=== PATIENT | male | born 1980 | race Caucasian/White ===

== ENCOUNTER 2018-06-13 11:49 | Emergency (ER) | payer OTHER ==
[2018-06-13 13:10] LABS: BASO % 0.3 % (0.0-2.0); EOS % 0.1 % (0.0-4.0); LYMPH # 1.9 K/uL (1.0-4.3); LYMPH % 21.6 % (20.0-40.0); MEAN CELL VOLUME 97.3 fL (80.0-94.0); MEAN CORPUSCULAR HEMOGLOBIN 33.2 pg (27.0-31.0); MEAN CORPUSCULAR HGB CONC 34.1 g/dL (33.0-37.0); MONO # 0.6 K/uL (0.0-0.8); MONO % 7.3 % (0.0-10.0); NEUT # 6.1 K/uL (1.8-7.0); NEUT % 70.7 % (50.0-75.0); RBC 4.82 Mil/uL (4.40-5.90); RED CELL DISTRIBUTION WIDTH 14.7 % (11.5-14.5); WHITE BLOOD COUNT 8.6 K/uL (4.8-10.8)
[2018-06-13 13:30] LABS: ACETAMINOPHEN < 10.0 ug/mL (10.0-30.0); SALICYLATE < 1.0 mg/dL 1
[2018-06-13 13:31] LABS: ALB/GLOB RATIO 1.4 (1.0-2.1); ALBUMIN 5.1 g/dL (3.5-5.0); ALT/SGPT 43 U/L (21-72); AST/SGOT 32 U/L (17-59); BLOOD UREA NITROGEN 10 mg/dL (9-20); CALCIUM 9.7 mg/dl (8.6-10.4); GFR NON-AFRICAN AMERICAN > 60
--- NOTE | 2018-06-13 13:42 | C.PDOC ---
History Of Present Illness 37 y/o male, with questionable PMhx of psychiatric illness, presents to ER with for bizarre behavior. As per , patient started behaving bizarrely last night. states that patient has history of similar symptoms 8 months ago when he was "stressed." Patient states that he is stressed about the "spirits." Denies having suicidal ideation, homicidal ideation, and active physical complaints. <Faisal Rojas - Last Filed: 06/13/18 16:45> History Per: Patient, Family (mother) History/Exam Limitations: no limitations Onset/Duration Of Symptoms: Days Current Symptoms Are (Timing): Still Present Severity: Moderate <Faisal Rojas - Last Filed: 06/13/18 16:45> <Lenin Mckeon - Last Filed: 06/14/18 06:08> <Apple Purcell - Last Filed: 06/14/18 15:13> Time Seen by Provider: 06/13/18 12:38 Chief Complaint (Nursing): Psychiatric Evaluation Past Medical History Reviewed: Historical Data, Nursing Documentation, Vital Signs Vital Signs: Last Vital Signs Temp 98.3 F 06/13/18 11:55 Pulse 98 H 06/13/18 11:55 Resp 18 06/13/18 11:55 BP 146/66 06/13/18 11:55 Pulse Ox 99 06/13/18 11:55 - Medical History PMH: No Chronic Diseases Surgical History: No Surg Hx Family History: States: No Known Family Hx - Social History Hx Alcohol Use: No Hx Substance Use: No - Immunization History Hx Tetanus Toxoid Vaccination: No Hx Influenza Vaccination: No Hx Pneumococcal Vaccination: No <Faisal Rojas - Last Filed: 06/13/18 16:45> Vital Signs: Last Vital Signs Temp 97.2 F L 06/13/18 23:00 Pulse 98 H 06/13/18 23:00 Resp 20 06/13/18 23:00 BP 107/76 06/13/18 23:00 Pulse Ox 99 06/13/18 23:00 <Lenin Mckeon - Last Filed: 06/14/18 06:08> Vital Signs: Last Vital Signs Temp 98.2 F 06/14/18 14:30 Pulse 72 06/14/18 14:30 Resp 20 06/14/18 14:30 BP 104/73 06/14/18 14:30 Pulse Ox 100 06/14/18 14:30 <Apple Purcell - Last Filed: 06/14/18 15:13> Review Of Systems Except As Marked, All Systems Reviewed And Found Negative. Constitutional: Negative for: Fever, Chills Psych: Negative for: Suicidal ideation <Faisal Rojas - Last Filed: 06/13/18 16:45> Physical Exam - Physical Exam Appears: Other (bizzare affect, actively praying) Skin: Normal Color, Warm, Dry Head: Atraumatic, Normacephalic Eye(s): bilateral: Normal Inspection Nose: Normal Oral Mucosa: Moist Neck: Supple Chest: Symmetrical Cardiovascular: Rhythm Regular Respiratory: Normal Breath Sounds, No Rales, No Rhonchi, No Wheezing Gastrointestinal/Abdominal: Soft, No Tenderness, No Guarding, No Rebound Neurological/Psych: Other (no focal deficits) <Faisal Rojas - Last Filed: 06/13/18 16:45> ED Course And Treatment - Laboratory Results Result Diagrams: 06/13/18 13:07 06/13/18 13:07 Lab Results: Total Bilirubin 2.1 mg/dL (0.2-1.3) H 06/13/18 13:07 AST 32 U/L (17-59) 06/13/18 13:07 ALT 43 U/L (21-72) 06/13/18 13:07 Alkaline Phosphatase 102 U/L (38-126) 06/13/18 13:07 Total Protein 8.8 g/dL (6.3-8.3) H 06/13/18 13:07 Albumin 5.1 g/dL (3.5-5.0) H 06/13/18 13:07 Globulin 3.7 gm/dL (2.2-3.9) 06/13/18 13:07 Albumin/Globulin Ratio 1.4 (1.0-2.1) 06/13/18 13:07 ECG: Interpreted By Me, Viewed By Me ECG Rhythm: Sinus Rhythm Interpretation Of ECG: NSR with no ST/ T wave changes Rate From EC O2 Sat by Pulse Oximetry: 99 (RA) Pulse Ox Interpretation: Normal - Other Rad CXR X-Ray: Viewed By Me, Read By Radiologist Interpretation: Accession No. : [id number]. Patient Name / ID : WILLIAM VIERA / [id number]. Exam Date : 06/13/2018 14:50:43 ( Approved ). Study Comment : Sex / Age : M / 37Y. Creator : fiona jones. Dictator : Ari Mancia MD. Patient Admitting Clerk : Information Assurance Engineer : Ari Mancia MD. Approver2 : Report Date : 06/13/2018 15:03:47. My Comment : . Date of service: 06/13/2018. HISTORY: pysch. COMPARISON: No prior. FINDINGS: LUNGS: No active pulmonary disease. PLEURA: No significant pleural effusion identified, no pneumothorax apparent. CARDIOVASCULAR: No aortic atherosclerotic calcification present. Normal cardiac size. No pulmonary vascular congestion. OSSEOUS STRUCTURES: No significant abnormalities. VISUALIZED UPPER ABDOMEN: Normal. OTHER FINDINGS: None. IMPRESSION: No active disease. <Faisal Rojas - Last Filed: 06/13/18 16:45> - Laboratory Results Result Diagrams: 06/13/18 13:07 06/13/18 13:07 Lab Results: Total Bilirubin 2.1 mg/dL (0.2-1.3) H 06/13/18 13:07 Direct Bilirubin 0.6 mg/dL (0.0-0.4) H 06/13/18 15:58 AST 32 U/L (17-59) 06/13/18 13:07 ALT 43 U/L (21-72) 06/13/18 13:07 Alkaline Phosphatase 102 U/L (38-126) 06/13/18 13:07 Total Protein 8.8 g/dL (6.3-8.3) H 06/13/18 13:07 Albumin 5.1 g/dL (3.5-5.0) H 06/13/18 13:07 Globulin 3.7 gm/dL (2.2-3.9) 06/13/18 13:07 Albumin/Globulin Ratio 1.4 (1.0-2.1) 06/13/18 13:07 Urine Color Yellow (YELLOW) 06/13/18 15:17 Urine Clarity Clear (Clear) 06/13/18 15:17 Urine pH 6.0 (5.0-8.0) 06/13/18 15:17 Ur Specific [place] 1.006 (1.003-1.030) 06/13/18 15:17 Urine Protein Negative mg/dL (NEGATIVE) 06/13/18 15:17 Urine Glucose (UA) Normal mg/dL (Normal) 06/13/18 15:17 Urine Ketones Negative mg/dL (NEGATIVE) 06/13/18 15:17 Urine Blood Negative (NEGATIVE) 06/13/18 15:17 Urine Nitrate Negative (NEGATIVE) 06/13/18 15:17 Urine Bilirubin Negative (NEGATIVE) 06/13/18 15:17 Urine Urobilinogen Normal mg/dL (0.2-1.0) 06/13/18 15:17 Ur Leukocyte Esterase Neg Mohsen/uL (Negative) 06/13/18 15:17 Urine WBC (Auto) < 1 /hpf (0-5) 06/13/18 15:17 Urine RBC (Auto) < 1 /hpf (0-3) 06/13/18 15:17 Urine Bacteria Rare (<OCC) 06/13/18 15:17 <Lenin Mckeon - Last Filed: 06/14/18 06:08> - Laboratory Results Result Diagrams: 06/13/18 13:07 06/13/18 13:07 Lab Results: Total Bilirubin 2.1 mg/dL (0.2-1.3) H 06/13/18 13:07 Direct Bilirubin 0.6 mg/dL (0.0-0.4) H 06/13/18 15:58 AST 32 U/L (17-59) 06/13/18 13:07 ALT 43 U/L (21-72) 06/13/18 13:07 Alkaline Phosphatase 102 U/L (38-126) 06/13/18 13:07 Total Protein 8.8 g/dL (6.3-8.3) H 06/13/18 13:07 Albumin 5.1 g/dL (3.5-5.0) H 06/13/18 13:07 Globulin 3.7 gm/dL (2.2-3.9) 06/13/18 13:07 Albumin/Globulin Ratio 1.4 (1.0-2.1) 06/13/18 13:07 Urine Color Yellow (YELLOW) 06/13/18 15:17 Urine Clarity Clear (Clear) 06/13/18 15:17 Urine pH 6.0 (5.0-8.0) 06/13/18 15:17 Ur Specific [place] 1.006 (1.003-1.030) 06/13/18 15:17 Urine Protein Negative mg/dL (NEGATIVE) 06/13/18 15:17 Urine Glucose (UA) Normal mg/dL (Normal) 06/13/18 15:17 Urine Ketones Negative mg/dL (NEGATIVE) 06/13/18 15:17 Urine Blood Negative (NEGATIVE) 06/13/18 15:17 Urine Nitrate Negative (NEGATIVE) 06/13/18 15:17 Urine Bilirubin Negative (NEGATIVE) 06/13/18 15:17 Urine Urobilinogen Normal mg/dL (0.2-1.0) 06/13/18 15:17 Ur Leukocyte Esterase Neg Mohsen/uL (Negative) 06/13/18 15:17 Urine WBC (Auto) < 1 /hpf (0-5) 06/13/18 15:17 Urine RBC (Auto) < 1 /hpf (0-3) 06/13/18 15:17 Urine Bacteria Rare (<OCC) 06/13/18 15:17 <Apple Purcell - Last Filed: 06/14/18 15:13> Medical Decision Making Medical Decision Making: pending medical clearance Plan: --Labs --UA --CXR pt medically cleared. non specific elevation in bili, mostly unconjugated. abd soft. no other elevation in lfts. <Faisal Rojas - Last Filed: 06/13/18 16:45> Medical Decision Makin:05 Patient has bed at [facility] [place] Dr. Jazzy Sauceda. <Apple Purcell - Last Filed: 06/14/18 15:13> Disposition <Faisal Rojas - Last Filed: 06/13/18 16:45> Counseled Patient/Family Regarding: Studies Performed, Diagnosis - Disposition Disposition Time: 07:00 <Lenin Mckeon - Last Filed: 06/14/18 06:08> - Disposition Disposition Time: 15:12 <Apple Purcell - Last Filed: 06/14/18 15:13> - Disposition Disposition: Trans to Other Acute Care Hosp Condition: [facility] Forms: [facility] (Lebanese) - Clinical Impression Clinical Impression: Schizophrenia - Scribe Statement The provider has reviewed the documentation as recorded by the Venus Gomez Provider Attestation: All medical record entries made by the Jose Alejandroibe were at my direction and personally dictated by me. I have reviewed the chart and agree that the record accurately reflects my personal performance of the history, physical exam, medical decision making, and the department course for this patient. I have also personally directed, reviewed, and agree with the discharge instructions and disposition. <Faisal Rojas - Last Filed: 06/13/18 16:45> Physician Patient Turnover Patient Signed Over To: Apple Purcell Handoff Comments: pending bed availability at [facility] [place] <Lenin Mckeon - Last Filed: 06/14/18 06:08>
--- NOTE | 2018-06-13 15:11 | RAD ---
Date of service: 06/13/2018 HISTORY: pysch COMPARISON: No prior. FINDINGS: LUNGS: No active pulmonary disease. PLEURA: No significant pleural effusion identified, no pneumothorax apparent. CARDIOVASCULAR: No aortic atherosclerotic calcification present. Normal cardiac size. No pulmonary vascular congestion. OSSEOUS STRUCTURES: No significant abnormalities. VISUALIZED UPPER ABDOMEN: Normal. OTHER FINDINGS: None. IMPRESSION: No active disease.
[2018-06-13 15:25] LABS: URINE BACTERIA RARE (<OCC); URINE BILIRUBIN NEGATIVE (NEGATIVE); URINE BLOOD NEGATIVE (NEGATIVE); URINE CLARITY Clear (Clear); URINE COLOR Yellow (YELLOW); URINE GLUCOSE (UA) NORMAL (Normal); URINE LEUKOCYTE ESTERASE NEG Leu/uL (Negative); URINE PROTEIN NEGATIVE (NEGATIVE); URINE UROBILINOGEN NORMAL mg/dL (0.2-1.0)
[2018-06-13 15:57] LABS: BARBITURATES, UR NEGATIVE (NEGATIVE); BENZODIAZEPINES, UR NEGATIVE (NEGATIVE); PHENCYCLIDINE, UR NEGATIVE (NEGATIVE)
[2018-06-13 16:40] LABS: OPIATES, UR NEGATIVE (NEGATIVE)
[2018-06-13] MEDS ORDERED: Midazolam 2 MG/2 ML VIAL IVP STA (22:31)
[2018-06-13] MEDS ORDERED: Midazolam 2 MG/2 ML VIAL ONE (22:38)
--- NOTE | 2018-06-14 11:22 | CARD ---
APPROVED REPORT Date of service: 06/13/2018 EKG Measurement Heart [id number] <Conclusion> Normal sinus rhythm Normal ECG
--- NOTE | 2018-06-14 12:09 | PCM.PSYCH ---
Initial Psychiatric Evaluation - Initial Psychiatric Evaluation Type of Admission: Involuntary Chief Complaint (in patient's own words): "Nothing" History of Present Illness and Precipitating Events: Pt is seen chart reviewed case discussed He is a 37 y/o [place]er-Stateless male, with 2 children, not working but he is a very poor historian and it may not be true. 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 He lies with his and kids and last 1-2 days he had become irrational, bizarre and started not making sense. He also stopped eating, showering and even talking. He was confused at times. was scared and concerned and took him to ER He had a similar episode 8 months ago and he did not follow with psych. However, he reached full remission, it seems. thinks recent of a respected guru in [place] may have triggered this. No other past psych or substance hxx. UDS negative No known medical issues or family psych hx Current Medications: Active Medications Generic Name Dose Route Start Last Admin Trade Name Freq PRN Reason Stop Dose Admin Diphenhydramine HCl 50 mg 06/13/18 23:56 06/14/18 08:26 Benadryl PO 50 mg Q6H PRN Administration EPS, dystonia, allergy, insomn Haloperidol 5 mg 06/13/18 23:55 06/14/18 08:26 Haldol PO 5 mg Q4H PRN Administration Agitation Haloperidol Lactate 5 mg 06/13/18 23:55 Haldol IM Q4H PRN severe agitation Past Psychiatric History - Past Psychiatric History Previous Treatment History: Inpatient Pertinent Medical Hx (Current Medical&Sleep Prob, Allergies): Allergies Allergy/AdvReac Type Severity Reaction Status Date / Time No Known Allergies Allergy Unverified 06/13/18 12:00 No Known Home Med 06/13/18 Review of Systems - Review of Systems Systems not reviewed;Unavailable: Altered Mental Status Mental Status Examination - Personal Presentation Personal Presentation: Looks stated age - Affect Affect: Other (odd, labile) - Motor Activity Motor Activity: Psychomotor Agitation (at times) - Reliability in Providing Information Reliability in Providing Information: Poor, due to alteration in thoughts - Speech Speech: Disorganized - Mood Mood: Other (labile, anxious) - Formal Thought Process Formal Thought Process: Hallucinations, Delusions, Paranoia, Loosening of associations - Cognitive Functions Orientation: Person, Place Sensorium: Alert Attention/Concentration: Easily distracted Abstract Thinking: [place] Estimate of Intelligence: Average Judgement: Imparied, as evidence by: Poor judgement Memory: Recent impaired, as evidence by: Inability to recall events of the day, Remote impaired as evidenced by: Inability to recall sig life events - Risk Risk: Diminished functioning - Strength & Assets Inventory Strength & Assets Inventory: Family support DSM 5 DX - DSM 5 DSM 5 Diagnosis: Psychosis - unspecified r/o bipolar d/o - Recommended/Plan of Treatment Treatment Recommendations and Plan of Treatment: prn meds Transfer to [facility] [place] - screened and accepted, PC done 32 min
[2018-06-14 14:32] VITALS: RESP 20; O2SAT 100
[2018-06-14 15:24] VITALS: BP 117/82; PULSE 87; TEMP 97.6
== END 2018-06-14 16:05 | disposition short-term general hospital (02) ==
LOC: C.ER 11:49
DX: F29 Unspecified psychosis not due to a substance or known physiological condition (principal)
CPT/HCPCS: 71045; 80053; 80320; 80324; 80329; 80345; 80346; 80349; 80353; 80358; 80361; 81001; 82248; 83735; 83992; 84100; 85025; 93005; 96372; 96374; 99285; J2060; J2250; J3486